=== PATIENT | male | born 1975 | race Asian ===

== ENCOUNTER 2017-10-08 18:23 | Emergency (ER) | payer MEDICAID ==
[~2017-10-08] VITALS: Ht 167.6 cm; Wt 65.8 kg
[2017-10-08] MEDS ORDERED: LEVE1000 PO (18:36)
[2017-10-08] MEDS ORDERED: HYDR12.517 PO (18:36)
--- NOTE | 2017-10-08 18:44 | NUR ---
At bed side examining patient. pt's mother at bedside.
[2017-10-08] MEDS ORDERED: LEVETIRACETAM IV 500 MG in IV DEXTROSE 5% 100 ML IV ONE (19:00)
[2017-10-08] MEDS ORDERED: LISI-607 PO (19:09)
--- NOTE | 2017-10-08 19:12 | NUR ---
Assumed care of patient. No acute distress noted.
--- NOTE | 2017-10-08 19:15 | NUR ---
HANDS OFF REPORT GIVEN TO KATIE OREILLY. PENDING ORDERS AND PROCEDURES ENDORSED.
[2017-10-08] MEDS ORDERED: LEVETIRACETAM 500 MG/5 ML VIAL IV ONE (19:20)
--- NOTE | 2017-10-08 19:25 | NUR ---
Phlebotomy at bedside. No acute distress noted. Family at bedside.
--- NOTE | 2017-10-08 19:41 | NUR ---
Patient taken to CT with no acute distress. All patient needs attended and met. VSS
[2017-10-08 19:42] LABS: EOSINOPHILS # (AUTO) 0.3 K/uL (0.0-0.7); HEMOGLOBIN 14.2 g/dL (12.5-16.3); LYMPHOCYTES # (AUTO) 1.4 K/uL (20.0-40.0); MONOCYTES # (AUTO) 0.6 K/uL (2.0-10.0)
[2017-10-08 20:08] LABS: BILIRUBIN,DIRECT 0.1 mg/dL (0.0-0.2); BILIRUBIN,TOTAL 0.4 mg/dL (0.2-1.0); CREATININE 0.8 mg/dL (0.6-1.3); POTASSIUM 3.8 mmol/L (3.5-5.1); TOTAL PROTEIN, SERUM 7.5 g/dL (6.4-8.2)
[2017-10-08 20:23] LABS: BASOPHILS % (AUTO) 0.4 % (0.0-2.0); EOSINOPHILS % (AUTO) 2.4 % (0.0-7.0); HEMATOCRIT 41.6 % (36.7-47.1); LYMPHOCYTES % (AUTO) 12.8 % (20.5-51.5); MEAN CORPUSCULAR HEMOGLOBIN 29.2 uug (23.8-33.4); MEAN CORPUSCULAR HGB CONC 34 g/dL (32.5-36.3); MEAN CORPUSCULAR VOLUME 85.9 fL (73.0-96.2); MONOCYTES % (AUTO) 5.1 % (0.0-11.0); NEUTROPHILS # (AUTO) 8.7 K/uL (1.8-8.9); NEUTROPHILS % (AUTO) 79.3 % (38.5-71.5); PLATELET COUNT (AUTO) 108 K/uL (152-348); RED BLOOD CELL COUNT(AUTO) 4.85 MIL/uL (4.06-5.63)
[2017-10-08 20:29] LABS: EOSINOPHILS % (MANUAL) 1 % (0-8); LYMPHOCYTES % (MANUAL) 12 % (20-40); MONOCYTES % (MANUAL) 6 % (2-10); NEUTROPHILS % (MANUAL) 81 % (42-75)
[2017-10-08] MEDS ORDERED: IV NORMAL SALINE 1000 ML BAG IV ONE (21:00)
--- NOTE | 2017-10-08 21:40 | NUR ---
Patient discharged to home in stable conditon. Written and verbal after care instructions given. Patient verbalizes understanding of instructions. Patient ambulated from ER with stable gait accompanied by mother. patient driven home in private vehicle by mother. Peripheral IV removed prior to d/c. All belongings with patient. VSS.
[2017-10-08 21:45] VITALS: BP 127/77
== END 2017-10-08 21:46 | disposition home or self-care (01) ==
LOC: ER 18:25
DX: G40.909 Epilepsy, unspecified, not intractable, without status epilepticus (principal); Q03.9 Congenital hydrocephalus, unspecified; Z98.2 Presence of cerebrospinal fluid drainage device
CPT/HCPCS: 36415; 70450; 85025; 85730; A4663; J1953; J7060